=== PATIENT | male | born 1990 | race Caucasian/White ===

== ENCOUNTER 2021-03-10 13:30 | Emergency (ER) | payer OTHER ==
[~2021-03-10] VITALS: Ht 175.3 cm; Wt 82.1 kg
[2021-03-10] MEDS ORDERED: IBUP200T46 PO (14:15)
[2021-03-10] MEDS ORDERED: IBUP-1022 PO (18:08)
[2021-03-10] MEDS ORDERED: AUGM875T28 PO (18:10)
[2021-03-10 18:15] VITALS: BP 135/83
== END 2021-03-10 18:19 | disposition home or self-care (01) ==
LOC: M ED 13:30
DX: R68.84 Jaw pain (principal); F17.200 Nicotine dependence, unspecified, uncomplicated

== ENCOUNTER 2023-12-18 01:09 | Emergency (ER) | payer OTHER, SELFPAY ==
[~2023-12-18] VITALS: Ht 175.3 cm; Wt 85.9 kg
[~2023-12-18 01:09] MED LIST: AUGM875T28 PO; IBUP-1022 PO; IBUP200T46 PO
[2023-12-18 01:11] VITALS: BP 162/94; TEMP 97.4; O2SAT 97
[2023-12-18] MEDS: TETRACAINE 0.5% OPHTH SOLN 4ML OD ONE (02:00)
[2023-12-18] MEDS: FLUORESCEIN OPHTH 1MG STRIP OD ONE (02:13)
[2023-12-18] MEDS ORDERED: ERYT5OIN25 OD (02:29)
[2023-12-18] MEDS: ERYTHROMYCIN OPHTH OINT OD ONE (02:46)
== END 2023-12-18 03:07 | disposition home or self-care (01) ==
LOC: M ED 01:09
DX: T15.01XA Foreign body in cornea, right eye, initial encounter (principal); F17.200 Nicotine dependence, unspecified, uncomplicated